=== PATIENT | male | born 1955 | race Caucasian/White ===

== ENCOUNTER 2018-06-20 07:18 | Day surgery (SDC) | payer OTHER ==
[~2018-06-20 07:18] MED LIST: ENALAPRIL MALEA10 MG NGT; ZOCOR PO
== END 2018-06-20 14:05 | disposition home or self-care (01) ==
LOC: AMB-ENDOS 07:18
DX: K57.32 Diverticulitis of large intestine without perforation or abscess without bleeding (principal); K64.2 Third degree hemorrhoids